=== PATIENT | male | born 1960 | race Caucasian/White ===

== ENCOUNTER 2023-09-29 18:57 | Outpatient (CLI) | payer OTHER, SELFPAY ==
--- NOTE | ~2023-09-29 | CT_ITS ---
EXAMINATION: CTA chest PE abdomen pel DATE: 09/29/2023 19:20 INDICATION: CP,+DDIMER,ELEVATED LFTs,UPPER ABD PAIN TECHNIQUE: Computed tomography angiography (CTA) of the chest was performed with 100 mL Omnipaque-350 intravenous contrast timed to evaluate the pulmonary arteries, followed by portal venous phase imagi ng of the abdomen and pelvis. Coronal maximum intensity projection 3D-reconstructions were created by the technologist. The dose-length product (DLP) was 508.43 mGy-cm. Automated exposure control and it erative reconstruction technique were employed. COMPARISON: None. FINDINGS: CHEST: Lung parenchyma and airways: Azygos lobe. Right upper lung scarring. Scattered air cysts. Airways chris ar to the level of the trachea. Pleura: Unremarkable. Thoracic inlet, axillae and chest wall: No thyroid or soft tissue mass. Tracheostomy tube, in good po sition. Numerous collateral vessels in the right lower neck and anterior right chest. Likely occlusio n of the right subclavian vein. 3.0 thin-walled fluid density cystic structure in the left lower neck with mild peripheral enhancement. Thoracic aorta: No significant dilation. No dissection. Mild arch calcification. Mediastinum: Normal. Heart and pericardium: Normal. Coronary artery calcifications: . Thoracic bones: No acute osseous finding. Pulmonary arteries: Study quality: . No pulmonary emboli detected. ABDOMEN/PELVIS: Liver: Diffuse fatty infiltration. Biliary/Gallbladder: Gallbladder is normal. No bile duct dilation. Pancreas: No mass or duct dilation. Spleen: Normal. Adrenals:No mass. Kidneys: No suspicious mass or obstructing stone. Mild bilateral pelviectasis and ureterectasis. GI tract: No small or large bowel dilation. The appendix is not confidently visualized. Diverticulosi s without diverticulitis. Uncomplicated transverse colon anastomoses. Likely status post partial left colectomy. Mesentery/Peritoneum: No ascites, mass, or free air. Retroperitoneum: No mass. Atherosclerotic abdominal aortic and/or arterial calcifications. Pelvis: Distended urinary bladder. Mild prostatomegaly.. Soft Tissues: Soft tissues and body wall unremarkable. Abdominopelvic bones: No acute osseous finding. IMPRESSION: Tracheostomy tube in good position. The airway superior to the tracheostomy is occluded. 3 cm cystic right left lower neck lesion, may represent a chronic seroma, benign cyst, or necrotic ma ss or node. 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 Hepatic steatosis. Distended urinary bladder with mild bilateral renal pelviectasis and ureterectasis, correlate for fin dings of urinary retention and with urinalysis. Otherwise, no acute process detected in the abdomen or pelvis. Reviewed, dictated and finalized at location K. IMPRESSION: Tracheostomy tube in good position. The airway superior to the tracheostomy is occluded. 3 cm cystic right left lower neck lesion, may represent a chronic seroma, benig n cyst, or necrotic mass or node. 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 Hepatic steatosis. Distended urinary bladder with mild bilateral renal pelviectasis and ureterecta sis, correlate for findings of urinary retention and with urinalysis. Otherwise, no acute process detected in the abdomen or pelvis.
== END 2023-09-29 18:58 | disposition home or self-care (01) ==
PROVIDERS: PCP Family Medicine
DX: R79.1 Abnormal coagulation profile (principal); R10.10 Upper abdominal pain, unspecified; R79.89 Other specified abnormal findings of blood chemistry; Z93.0 Tracheostomy status; I82.B11 Acute embolism and thrombosis of right subclavian vein
CPT/HCPCS: 71275; 74177; Q9967

== ENCOUNTER 2024-06-18 10:49 | Emergency (ER) | payer OTHER, SELFPAY ==
[2024-06-18] VITALS (7 sets, daily range): BP systolic 133–137; BP diastolic 89–95; PULSE 78–89; RESP 13–20; TEMP 36.4; O2SAT 96–100
--- NOTE | ~2024-06-18 | CT_ITS ---
EXAMINATION: CTA chest PE protocol DATE: 06/18/2024 14:33 INDICATION: Hemoptysis. TECHNIQUE: Computed tomography angiography (CTA) of the chest was performed with 100 mL Omnipaque-350 intravenous contrast timed to evaluate the pulmonary arteries. Coronal maximum intensity projection 3D-reconstructions were created by the technologist. Automated exposure control and iterative reconst ruction technique were employed. The dose-length product was 257.50 mGy-cm. COMPARISON: Chest CT 09/29/2023 FINDINGS: There is mild emphysema. There are changes of wedge resection in right upper lobe. There is mild atelectasis bilaterally. No pleural effusion. There is a tracheostomy in expected position. The re is a 2.6 x 1.8 cm cystic mass in left supraclavicular region. The heart size is normal. No pericar dial effusion. There is no pulmonary embolus. There is severe cervical spondylosis and mild thoracic spondylosis. IMPRESSION: 1. No pulmonary embolus. 2. Mild emphysema. 3. 2.6 x 1.8 cm cystic mass in left supraclavicular region that previously measured 2.8 x 2.2 cm. The differential diagnosis includes seroma and dina metastatic disease. Reviewed, dictated and finalized at location A. NURSE IMPRESSION: 1. No pulmonary embolus. 2. Mild emphysema. 3. 2.6 x 1.8 cm cystic mass in left supraclavicular region that previously karen ured 2.8 x 2.2 cm. The differential diagnosis includes seroma and dina metasta tic disease.
--- OUTSIDE RECORDS SUMMARY | 2024-06-18 10:52 | XMS_ITS | Encounter Summary ---
Author Organization [facility] Address [address] [place] [address] Phone Care Team Providers Care Interior Design Program Chair Name Role Phone Unknown, Notinfile Primary Care Provider Unavail able Lauren Roberson MD Unavailable [phone] Catalino Rebolledo MD Unavailable [phone] Hipolito Valverde MD Unavailable [phone] Jose Huerta DO Primary Care Provider [phone] Juvenal Lin MD PhD Unavailable [phone] No, Physician Primary Care Provider [phone] Encounter Details Date Type Department Care Team (Late st Contact Info) Description 07/27/[address] [facility] [address] 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 No / Unsure 07/27/2019 10:50 AM CDT documented as of this encounter Progress Notes * Sammie Javier LCSW - 07/27/2019 11:59 PM CDT Social Work Note: Social Work attempted to meet with patient at time of his appointment, but he had already left. Attempted to f/u in treatment, but he had not arrived. Provided patient's RN with the telephone # to call for his ride when treatment is completed. However, later in the day, received a call from RN thatpatient's treatment would be finished at 7 or 8 PM and would need cab transportation home. Cab arranged for patient via [employer] [facility] [employer] and placed on-hold. Updated treatment room RN. When treatmentis completed, please call [phone] and request cab for this patient which is on-hold under his name. documented in this encounter Plan of Treatment Not on file documented as of this encounter Visit Diagnoses Not on filedocumented in this encounter Care Teams Interior Design Program Chair Relationship Specialty Start Date End Date Unknown, Notinfile PCP - General 06/06/19 09/25/19 Jose Huerta DO [address] [place] [address] PCP - General 09/26/19 06/18/20 No, Physician PCP - General 06/19/20 Lauren Roberson MD Radiation Oncologist Radiation Oncology 07/14/19 Catalino Rebolledo MD [address] [place] [address] Medical Oncologist/Librarian Head Medical Oncology 08/01/19 Hipolito Valverde MD [address] [place] [address] Surgeon Otolaryngology 08/01/19 Juvenal Lin MD PhD [address] [place] [address] Consulting Physician Radiation Oncology 06/07/20 documented as of this encounter
--- OUTSIDE RECORDS SUMMARY | 2024-06-18 10:52 | XMS_ITS | Data Portability ---
Author Organization [facility] [place], Main Office Address [address] [place] [address] Assessment No assessment recorded. Plan of Treatment Reminders Order Date Submit Date Provider Last Modified By Organization Details Last Modified Time Details Appointments Any 15 2024 01:00P M Lynette Fitzgerald APRN Not available Not available Not available Lab CBC w/ auto diff 2023 [facility] (Lab), [address] [place], [address], 11/17/2023 08:16:54 lipid panel, serum 2023 024 [facility] (Lab), [address] [place], [address], 11/10/2023 23:15:58 vitamin D, 25-hydrox y, total, serum 2023 [facility] (Lab), [address] [place], [address], 11/17/2023 08:16:54 magnesium , serum or plasma 2023 024 [facility] (Lab), [address] [place], [address], 11/17/2023 08:16:54 hepatitis C virus Ab, serum 2023 024 [facility] (Lab), [address] [place], [address], 11/17/2023 08:16:55 glycohemo globin, total, blood 2023 024 [facility] (Lab), [address] [place], [address], 11/17/2023 08:16:55 vitamin B12, serum 2023 024 [facility] (Lab), [address] [place], [address], 11/10/2023 23:15:58 TSH, serum or plasma 2023 024 [facility] (Lab), [address] [place], [address], 11/11/2023 08:14:58 T4, free, serum 2023 024 [facility] (Lab), [address] [place], [address], 11/17/2023 08:16:54 CMP, serum or plasma 2023 024 [facility] (Lab), [address] [place], [address], 11/10/2023 23:15:58 Referral cardiolog ist referral - Recurrent chest pain. Trach patient. History of vocal cord and colon cancer 2023 024 [facility] Roly White MD, [address] [facility], [facility] [address], [place], [address], 01/06/2024 16:33:17 Procedures None recorded. Surgeries None recorded. Imaging None recorded. Medication Orders levothyro xine 100 mcg tablet 2024 025 [facility][id number], [address], [place], [id number], 05/10/2024 14:54:34 gabapenti n 800 mg tablet 2024 025 [facility] #[id number], [address], [place], [id number], 05/10/2024 14:54:37 gabapenti n 800 mg tablet 2023 024 [facility] #[id number], [address], [place], [id number], 11/10/2023 14:49:07 Patient TargetsNo targets recorded. Patient Instructions Encounter Date Encounter Id Patient Instructions Last Modified By Organization Details Last Modified Time 11/10/2023 [id number] Follow up in 6 months Gabapentin sent to pharmacy Obtain labs Referral to Dr. 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 Trach patient. History of vocal cord and colon cancer Referring Physician: Lynette Fitzgerald, Internal Medicine, Encounter Date: 11/10/2023 Results Created Date Observation Date Name Description Value Unit Range Abnormal Flag Note LastModifiedBy Organization Detail LastModifiedTime 01/15/20 24 01/13/2024 imagi ng/di agnos tic resul t No observ ation record ed. [facility] [address], [place], [address], 01/15/2024 13:41:13 04/01/20 24 04/01/2024 imagi ng/di agnos tic resul t No observ ation record ed. [facility] [address], [place], [address], 04/01/2024 16:30:16 04/11/20 24 04/07/2024 imagi ng/di agnos tic resul t No observ ation record ed. [facility] [address], [place], [address], 04/11/2024 13:25:30 04/11/20 24 04/07/2024 US, doppl er, evita roa No observ ation record ed. [email or web address] [facility] [address], [place], [address], 05/01/2024 18:36:39 Result Notes None recorded. Problems Name Problem SNOMED Code Status Onset Date Resolution Date Notes Provider Name and Address Organization Details Recorded Time Hypothyroi dism 30687178 Active 2023 Lynette Fitzgerald APRN [address], [place], [address], [employer] 4 14:26:23 Neuropathy 405757373 Active 2023 left lower extremity Lynette Fitzgerald APRN [address], [place], [address], [employer] 4 14:30:23 Carcinoma of colon 905504529 Active 2023 Lynette Fitzgerald APRN [address], [place], [address], [employer] 4 14:33:57 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 Lynette Fitzgerald APRN [address], [place], [address], [employer] 4 14:34:16 Essential hypertensi on 82911623 Active 2023 Lynette Fitzgerald APRN [address], [place], [address], [employer] 4 16:46:12 Chest wall pain 619291359 Active 2023 Lynette Fitzgerald APRN [address], [place], [address], [employer] 4 14:42:52 Homeless 82583976 Active 2023 Lynette Fitzgerald APRN [address], [place], [address], [employer] 4 16:46:17 Acute exacerbati on of chronic obstructiv e pulmonary disease 921860408 Active Lynette MenezesMEETA bo [address], [place], [address], [employer] 4 16:40:49 Cough 48495646 Active Lynette Fitzgerald APRN [address], [place], [address], [employer] 4 16:40:49 Chronic obstructiv e pulmonary disease 28964897 Active 2023 Lynette Fitzgerald APRN [address], [place], [address], [employer] 4 16:45:55 Hyponatrem ia 39318969 Active 2023 Lynette Fitzgerald APRN [address], [place], [address], [employer] 4 16:46:03 Abdominal colic 2410192 Active Lynette Fitzgerald APRN [address], [place], [address], [employer] 4 10:03:38 Permanent tracheosto my Active 2024 Trach tube is through [employer] and is a [employer] Lynette MEETA Fitzgerald [address], [place], [address], [employer] 5 10:42:28 Notes:Trachostomy since 2019 Some problems listed in Documents: #[id number], #[id number] could not be added to this patient's chart. Please review these documents and add these problems to the patient's chart manually as needed. Problem Notes None recorded. Procedures Surgical History Date Name Laterality Status Provider Name and Address Organization Details Recorded Time excision of colon completed CHRISTOPHER Umaña [facility] [employer] [facility] 11/10/2023 14:10:26 permanent tracheostomy completed Luz Linares CHRISTOPHER [facility] [employer] [facility] 11/10/2023 14:21:03 lobectomy of the lung and excisional biopsies completed Luz Linares CHRISTOPHER [facility] [employer] [facility] 11/10/2023 14:14:28 Imaging Results Imaging Date Name Status LastModified by [facility] Details LastModified Time 01/13/2024 imaging/diag nostic result active [facility] [address] [facility] [address], [place], [address], 01/15/2024 13:41:13 04/01/2024 imaging/diag nostic result active [facility] [address], [place], [address], 04/01/2024 16:30:16 04/07/2024 imaging/diag nostic result active [facility] [address], [place], [address], 04/11/2024 13:25:30 04/07/2024 US, doppler, venous completed [email or web address] [facility] [address], [place], [address], 05/01/2024 18:36:39 Procedure Notes None recorded. Medical Equipment None Reported. Allergies Allergen ID Allergen Name Allergen Category Reaction Reaction Severity Criticality Documentation Date Start Date Code Code System Note Provider Name and Address Organization Details Recorded Time 18787 No known allergy (situatio n) Not available Not available Not available Not available 11/20/2023 64326 6003 SNOMED Lynette Fitzgerald, MEETA [address] [facility], [address], [place], [address] , [facility] [employer] [facility] 16:40:31 No known drug allergies Medications Name Sig Start Date Stop Date Status Note LastModified by Organization Details LastModified Time gabapentin 600 mg tablet TAKE 1 TABLET BY MOUTH THREE TIMES DAILY 11/10 completed Not Available Not Available Not Available ipratropium 0.5 mg-albutero l 3 mg (2.5 mg base)/3 mL nebulizatio n soln 3 mL by inhalatio n route. 11/18 completed Not Available Not Available Not Available trazodone 50 mg tablet 11/09 completed Not Available Not Available Not Available azithromyci n 250 mg tablet TAKE 2 TABLETS BY MOUTH ON DAY 1, AND THEN TAKE 1 TABLET BY MOUTH ONCE A DAY ON DAY 2 THROUGH DAY 5 11/09 completed Not Available Not Available Not Available Isovue-370 76 % intravenous solution 100 mL by intraven. route. 01/06 completed Not Available Not Available Not Available lactated Ringers intravenous solution 1000 mL by intraven. route. 01/06 completed Not Available Not Available Not Available hydroxyzine pamoate 50 mg capsule 11/09 completed Not Available Not Available Not Available amlodipine 5 mg tablet 11/09 completed Not Available Not Available Not Available omeprazole 40 mg capsule,del ayed release TAKE 1 CAPSULE BY MOUTH ONCE DAILY 11/09 completed Not Available Not Available Not Available aspirin 81 mg tablet,shahana yed release Take 1 tablet every day by oral route. active Not Available Not Available No t Available levothyroxi ne 100 mcg tablet Take 1 tablet every day by oral route as directed, for thyroid. 2024 active Not Available Not Available Not Avai lable Nitrostat 0.4 mg sublingual tablet 0.4 mg by sublingua l route. 11/18 completed Not Available Not Available Not Available gabapentin 800 mg tablet Take 1 tablet 3 times a day by oral route as directed, for nerve pain in leg. active Not Available Not Available No t Available lidocaine 5 % topical patch 11/09 completed Not Available Not Available Not Available Bentyl 10 mg/mL intramuscul ar solution 20 mg by intramusc . route. 01/06 completed Not Available Not Available Not Available budesonide 0.5 mg/2 mL suspension for nebulizatio n 0.5 mg by inhalatio n route. 11/18 completed Not Available Not Available Not Available aspirin 81 mg chewable tablet 81 mg by oral route. 11/18 completed Not Available Not Available Not Available sodium chloride 0.9 % intravenous solution 50 mL by intraven. route. 01/06 completed Not Available Not Available Not Available naproxen 500 mg tablet TAKE 1 TABLET BY MOUTH TWICE DAILY FOR 10 DAYS 11/09 completed Not Available Not Available Not Available ondansetron HCl (PF) 4 mg/2 mL injection solution 4 mg by injection route. 01/06 completed Not Available Not Available Not Available hydrochloro thiazide 12.5 mg tablet 11/09 completed Not Available Not Available Not Available Solu-Medrol (PF) 125 mg/2 mL solution for injection 125 mg by injection route. 11/19 completed Not Available Not Available Not Available Eliquis 2.5 mg tablet TAKE 1 TABLET BY MOUTH TWICE DAILY active Not Available Not Available No t Available Vitals Date Recorded Body weight Body mass index (BMI) Body height Body temperature Heart rate Systolic blood pressure Diastolic blood pressure Provider Name and Address Organization Details Last Updated DateTime 4 56308.5 9 g 24 kg/m2 172.72 cm 97.5 [degF] 78 /min 142 mm[Hg] 82 mm[Hg] CHRISTOPHER Fowler [facility] [place] 4 14:17:32 Date Recorded Body height Body mass index (BMI) Body weight Body temperature Heart rate Oxygen saturation Oxygen saturation in Arterial blood by Pulse oximetry Pain severity - 0-10 verbal numeric rating [Score] - Reported Systolic blood pressure Diastolic blood pressure Provider Name and Address Organization Details Last Updated DateTime 5 172.72 cm 25.8 kg/m2 05106.7 g 97.5 [degF] 85 /min 98 % 98 % 9 130 mm[Hg] 68 mm[Hg] Zhane Hood MA [facility] [place] 5 14:34:45 Social History Question Answer Notes LastModified by Organizat ion Details LastModified Time Tobacco Smoking Status Former Smoker quit 2019 CHRISTOPHER Fowler [facility] [place] 11/10/2023 14:12:31 What Is Your Level Of Alcohol Consumption? None Information not available 11/10/2023 What Is Your Level Of Caffeine Consumption? None Information not available 11/10/2023 Are You Currently Employed? No Information not available 11/10/2023 When Did You Quit Smoking? 1-5yearssin pato corea Information not available 11/10/2023 What Was The Date Of Your Most Recent Tobacco Screening? 11/10/2023 Information not available 11/10/2023 Do You Use Any Illicit Or Recreational Drugs? No Information not available 11/10/2023 Do You Or Have You Ever Used Any Other Forms Of Tobacco Or Nicotine? No Information not available 11/10/2023 Sex: Unknown Functional Status None recorded. Mental Status None recorded. Family History Relationship Description Onset Age of this Age Resolved Age Notes LastModified by Organization Details LastModified Time Unspecified Relation Family history of Myocardial infarction Not available 11/09 14:09:29 Unspecified Relation Family history of malignant neoplasm Not available 2023 14:09:38 Medical History Condition Response CANCER: SPECIFY Y OTHER # 1 Y COPD N HYPOTHYROIDISM Y Immunizations Vaccine Type Date Status Note Provider Nam e and Address Organization Details Recorded Time Influenza, recombinant, quadrivalent, PF 01/21/2023 completed Lynette Fitzgerald APRN [address], [place], [address], [employer] 11/10/2023 14:32:26 Influenza, recombinant, quadrivalent, PF 02/27/2021 completed Lynette Fitzgerald APRN [address], [place], [address], [employer] 11/10/2023 14:32:26 COVID-19, mRNA, LNP-S, PF, 100 mcg/0.5mL dose or 50 mcg/0.25mL dose 09/19/2020 completed Lynette Fitzgerald APRN [address], [place], [address], [employer] 11/10/2023 14:32:26 COVID-19, mRNA, LNP-S, PF, 100 mcg/0.5mL dose or 50 mcg/0.25mL dose 10/17/2020 completed Lynette Fitzgerald APRN [address], [place], [address], [employer] [facility] [employer] [facility] 11/10/2023 14:32:26 influenza, unspecified formulation 02/28/2020 completed Lynette Fitzgerald APRN [address], [place], [address], [employer] [facility] [employer] [facility] 11/10/2023 14:32:26 influenza, unspecified formulation 03/27/2019 completed Lynette Fitzgerald APRN [address], [place], [address], [employer] [facility] [employer] [facility] 11/10/2023 14:32:26 Influenza, split virus, quadrivalent, PF 03/18/2019 jdue Fitzgerald APRN [address], [place], [address], [employer] [facility] [employer] [facility] 11/10/2023 14:32:26 COVID-19, mRNA, LNP-S, PF, 50 mcg/0.5 mL 02/23/2024 jude Fitzgerald APRN [address], [place], [address], [employer] [facility] [employer] [facility] 05/10/2024 14:50:35 Influenza, split virus, trivalent, PF 02/23/2024 jude Fitzgeradl APRN [address], [place], [address], [employer] [facility] [employer] [facility] 05/10/2024 14:50:35 Past Encounters Encounter ID Performer Location Encounter Start Date Encounter Closed Date Diagnosis/Indication Diagnosis SNOMED-CT Code Diagnosis ICD10 Code Diagnosis Note [id number] MEETA [facility] [address] [place] [address] 11/10/2023 13:54:30 11/10/2023 14:52:16 Hypothyroidism 45751457 E03.9 Essential hypertension 04702075 I10 Chest wall pain 69034140 6 R07.89 Neuropathy 265623550 G62 .9 [id number] Lynette Fitzgerald APRN [facility] [address] [facility] [place] [address] 05/10/2024 13:54:43 05/10/2024 15:07:30 Adult health examination 095314250 Z00.00 Neuropathy 501516009 G62 .9 Hypothyroidism 34979316 E03.9 Health Concerns Section Related Observation LastModified by Organization Detai ls LastModified Time None Recorded Concern Status LastModified by Organization Details LastModified Time None Recorded Advance Directives Directive None Recorded Payers Encounter Date Sequence Insurance Name Policy Number Policy Jarrell Covered Member ID Jarrell Member ID Guarantor Name 11/10/2023 1 [facility] ON OR AFTER 10/25/20 (MEDICAID REPLACEMENT - HMO) Garth Raymundo [id number] Garth Raymundo 05/10/2024 1 [facility] ON OR AFTER 10/25/20 (MEDICAID REPLACEMENT - HMO) Garth Raymundo [id number] Garth Raymundo Notes Date Note Type Note Provider Name and Address Organization Details Recorded Time 11/10/2023 text/html Garth presents today to establish care as a new patient. 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 He now has a trach and voice amplifier. Alert and oriented. He appears frustrated with his trach at times and his inability to speak without the vocal amplifier. Lynette Fitzgerald APRN [address] [facility], [place], [address], [facility] 11/10/2023 14:50:17 05/10/2024 text/html Garth presents today for his 6 month follow up. He states that his left leg has been hurting because he is homeless and sleeps in a tent with 2 sleeping bags. He states he has some blockage in his heart, but sees cardiology. He has an appointment tomorrow for follow up. 11/10/2023rosy presents today to establish care as a new patient. 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 He now has a trach and voice amplifier. Alert and oriented. He appears frustrated with his trach at times and his inability to speak without the vocal amplifier. Lynette Fitzgerald, EMPLOYMENT LAW SPECIALIST [address] [facility], [facility] [address], [place], [address], [employer] [facility] [employer] [facility] 05/10/2024 15:03:22
--- OUTSIDE RECORDS SUMMARY | 2024-06-18 10:52 | XMS_ITS | Clinical Summary ---
Author Organization [facility] Address [address] [place] [address] Care Team Providers Care Life Care Planner Name Role Phone Lauren Roberson MD Unavailable [phone] Catalino Rebolledo MD Unavailable [phone] Hipolito Valverde MD Unavailable [phone] Juvenal Lin MD PhD Unavailable [phone] No, Physician Primary Care Provider Allergies No known active allergies Medications levothyroxine (SYNTHROID) 50 mcg tablet Take 1 tablet (50 mcg total) by mouth magazine feeder before breakfast 30 tablet 3 0 Active Additional Information Patient not taking.Informant: Self, Reported on 02/28/2020 acetaminophen 500 mg capsuleIndicati ons:Pain Take 2 capsules (1,000 mg total) by mouth every 6 (six) hours as needed for pain May obtain over the counter and use as directed. 0 Active lidocaine (LIDODERM) 5 % Place 2 patches on the skin daily as needed for pain Remove & discard patch within 12 hours or as directed by MD. May obtain over the counter and use as directed. Please Do Not apply directly on incision lines. 0 Active Additional Information Patient not taking.Reported on 06/19/2020 polyethylene glycol (MIRALAX) 17 gram packetIndicatio ns:constipation Take 1 packet (17 g total) by mouth daily as needed for constipation May obtain over the counter and use as directed. 0 Active Additional Information Patient not taking.Reported on 06/19/2020 gabapentin (NEURONTIN) 300 mg capsuleIndicati ons:Nerve pain Take 1 capsule (300 mg total) by mouth nightly 30 capsule 0 Active baclofen (LIORESAL) 10 mg tabletIndicatio ns:Muscle spasm Take 1 tablet (10 mg total) by mouth nightly as needed for muscle spasms 30 tablet 0 Active Active Problems Patient Care Coordination No te Formatting of this note migh t be different from the original. Referring: Dr. Catalino Rebolledo This is a 59 year old male presenting to us with a pulmonary nodule. He has a medical history significant for COPD and hypothyroidism. He is a former smoker. 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 He underwent a total laryngectomy, bilateral selective neck dissection and total thyroidectomy on 06/13/2019. He then went onto to receive adjuvant radiation therapy 6600 cGy in fractions of 200 cGy x 33 fractions. He has been under surveillance and recently underwent a PET scan on 01/17/2020 that showed interval post-surgical changes of total laryngectomy, thyroidectomy, and bilateral radical neck dissection. Mild diffuse low level FDG uptake most likely represents posttreatment and inflammatory change, without focal FDG uptake to suggest residual/recurrent disease. Persistent indeterminate spiculated right upper lobe pulmonary nodule, slightly increased in size but stable in FDG avidity given differences in technique. Focus of FDG uptake within the right parietal lobe, indeterminate but may represent a metastatic focus. He underwent a brain MRI on 01/23/2020 that showed no evidence of intracranial metastatic disease. No definite MRI correlate for focal right parietal uptake seen on recent PET/CT. He is here for further surgical evaluation and discussion. Review of systems: All systems were reviewed and are negative. Problem Noted Date Diagnosed Date Lung nodule 02/16/2020 Overview (02/16/2020): Added automatically from request for surgery [id number] Lymphedema of the head and neck 01/23/2020 History of radiation to head and neck region Pain of left lower extremity 12/12/2019 Decreased range of motion of neck 10/10/2019 Pulmonary nodule, left 09/26/2019 Larynx cancer (CMS/[facility]) 06/28/2019 Cancer Staging:Pathologic stage from 06/13/2019:Stage SANCHEZ(pT4a, pN0, cM0) - Signed by Lauren Roberson MD on 07/14/2019 Overview (06/28/2019): DIAGNOSIS: Laryngeal cancer PROCEDURE PERFORMED: ([facility] 06/13/2019) Left anterolateral thigh myocutaneous free flap reconstruction POSTOPERATIVE DIAGNOSIS T4 N0 laryngeal cancer. PROCEDURE PERFORMED ([facility] 06/13/2019) 1. Total laryngectomy, total thyroidectomy. 2. Bilateral neck dissection level 2b, 3,4, 6, and 7. 3. Bilateral sternocleidomastoid local muscleflaps. Inferiorly-based Severe malnutrition (CMS/HCC) 06/07/2019 Vocal cords swelling 06/06/2019 Overview (06/06/2019): Added automatically from request for surgery [id number] Resolved Problems Problem Noted Date Diagnosed Date Resolved Date Laryngeal mass 06/06/2019 10/10/2019 Overview (06/07/2019): Added automatically from request for surgery [id number] Immunizations Immunization Administration Dates Next Due Influenza, Quadrivalent, Spl it, Preservative Free, Intramuscular 03/18/2019 Influenza, Unspecified 02/28/2020,03/27/2019 Surgical History Surgery Date Site/Laterality Comments KNEE SURGERY ?? - this was previously charted - patient states he has never had knee surgery. - MEAGAN, RN TOTAL LARYNGECTOMY 06/13/2019 TOTAL THYROIDECTOMY 06/13/2019 CENTRAL LINE PLACEMENT > 5 YEARS 07/26/2019 N/A Medical History Medical History Date Comments COPD (chronic obstructive pulmonary disease) (HC C) Smoker Cancer (CMS/HCC) (HCC) larynx Hypothyroidism Family History Medical History Relation Name Comments Heart attack Father Relation Name Status Comments Father Social History Tobacco Use Types Packs/Day Years Used Date Smoking Tobacco: Former Cigarettes 1 - 2019 Smokeless Tobacco: Never Comments:Quit smoking 5 dave hs ago Alcohol Use Standard Drinks/Week Comments Not Currently 14 (1 standard drink = 0.6 oz pure alcohol) quit in 2019 when diagnosed with laryngeal cancer Sex and Gender Information Value Date Recorded Sex Assigned at Not on file Legal Sex Male 5:45 AM CHIEF STATION ENGINEER Gender Identity Not on file Sexual Orientation Not on file Obstetrics History Last Filed Vital Signs Vital Sign Reading Time Taken Comments Blood Pressure 126/90 06/19/2020 12:52 PM CHIEF STATION ENGINEER Pulse 80 06/19/2020 12:52 PM CHIEF STATION ENGINEER Temperature 36.3 C (97.3 F) 06/19/2020 12:52 PM CHIEF STATION ENGINEER Respiratory Rate 22 06/19/2020 12:52 PM CHIEF STATION ENGINEER Oxygen Saturation 99% 06/19/2020 12:52 PM CHIEF STATION ENGINEER Inhaled Oxygen Concentration - - Weight 76.8 kg (169 lb 6.4 oz) 06/19/2020 12:52 PM CHIEF STATION ENGINEER Height 180 cm (5' 10.87 ) 03/02/2020 12:34 PM CS T Body Mass Index 23.72 03/02/2020 12:34 PM CHIEF STATION ENGINEER Plan of Treatment Health Maintenance Due Date Last Done Comments Colon Cancer Screening-Colonoscopy 1962 Depression Screening 1962 Hepatitis C Screening 1962 Prostate Cancer Screening-PSA 1962 DTaP/Tdap/Td Vaccine (1 - Tdap) 1973 Hepatitis B Screening 1980 Regular Well Visit/Exam 18-64 1980 Pneumococcal vaccine <65 (1 of 2 - PCV) 1981 Zoster Vaccine (1 of 2) 2012 Covid-19 Vaccine (3 - 2023-2 5 season) 2023 10/17/2020, 09/19/2020 Influenza Vaccine (#1) 2023 3, 02/27/2021, 02/28/2020, Additional history exists Medical Devices Implanted Type Area Welding Machine Operator/Tender Device Identifier Shelf Expiration Date Model / Serial / Lot [id number] Allian [id number] Yellow Medicine Microvascular Anastomoses 4mm Screwdown Operator Anastomosis Sterile - [id number] Implanted:Qty: 1 on 06/13/2019 by Reji Alas MD at [facility] Other - see comments Neck [employer] Allian 03/21/2024 [id number] / / Description:Screwdown Operator [employer] [id number] Probe Doppler 17.4cm Standard Cuff Implantable 20mhz Latex Free Sterile Microvascular Anastomoses Narciso - [id number] Implanted:Qty: 1 on 06/13/2019 by Reji Alas MD at [facility] Neck [employer] [id number] 04/26/2022 [id number] / / [id number] Insurance [facility] Advance Directives For more information, please contact: [phone] * Full Code (Latest Code Status on File) Date Activated Date Inactivated Comments 03/02/2020 6:40 PM 03/05/2020 4:51 PM * Full Code Date Activated Date Inactivated Comments 07/26/2019 8:49 AM 07/26/2019 2:38 PM * Full Code Date Activated Date Inactivated Comments 06/06/2019 11:31 AM 06/23/2019 8:04 PM Care Teams Life Care Planner Relationship Specialty Start Date End Date No, Physician PCP - General 06/19/20 Lauren Roberson MD Radiation Oncologist Radiation Oncology 07/14/19 Catalino Rebolledo MD [address] [facility] [address] [place] [address] Medical Oncologist/Drafter Electromechanical Medical Oncology 08/01/19 Hipolito Valverde MD [address] [place] [address] Surgeon Otolaryngology 08/01/19 Juvenal Lin MD PhD [address] [place] [address] Consulting Physician Radiation Oncology 06/07/20
--- OUTSIDE RECORDS SUMMARY | 2024-06-18 10:52 | XMS_ITS | Referral Summary ---
Author Organization [facility] Address [address] [place] [address] Care Team Providers Care Field Gauger Name Role Phone Lauren Roberson MD Unavailable [phone] Catalino Rebolledo MD Unavailable [phone] Hipolito Valverde MD Unavailable [phone] Juvenal Lin MD PhD Unavailable [phone] No, Physician Primary Care Provider [phone] Allergies No known active allergies Medications levothyroxine (SYNTHROID) 50 mcg tablet Take 1 tablet (50 mcg total) by mouth food service order clerk before breakfast 30 tablet 3 0 Active [...] (02/16/2020): Added automatically from request for surgery [id number] Lymphedema of the head and neck 01/23/2020 History of radiation to head and neck region Pain of left lower extremity 12/12/2019 Decreased range of motion of neck 10/10/2019 Pulmonary nodule, left 09/26/2019 Larynx cancer (CMS/[facility]) 06/28/2019 Cancer Staging:Pathologic stage from 06/13/2019:Stage [...] (06/06/2019): Added automatically from request for surgery [id number] Resolved Problems Problem Noted Date Diagnosed Date Resolved Date Laryngeal mass 06/06/2019 10/10/2019 Overview (06/07/2019): Added automatically from request for surgery [id number] Immunizations Immunization Administration Dates Next Due Influenza, Quadrivalent, Spl it, Preservative Free, Intramuscular 03/18/2019 Influenza, Unspecified 02/28/2020,03/27/2019 Social History Tobacco Use Types Packs/Day Years Used Date Smoking Tobacco: Former Cigarettes 2019 Smokeless Tobacco: Never Comments:Quit smoking 5 dave hs ago Alcohol Use Standard Drinks/Week Comments Not Currently 14 (1 standard drink = 0.6 oz pure alcohol) quit in 2019 when diagnosed with laryngeal cancer Sex and Gender Information Value Date Recorded Sex Assigned at Not on file Legal Sex Male 5:45 AM PROGRAM SUPPORT SPECIALIST Gender Identity Not on file Sexual Orientation Not on file Last Filed Vital Signs Vital Sign Reading Time Taken Comments Blood Pressure 126/90 06/19/2020 12:52 PM PROGRAM SUPPORT SPECIALIST Pulse 80 06/19/2020 12:52 PM PROGRAM SUPPORT SPECIALIST Temperature 36.3 C (97.3 F) 06/19/2020 12:52 PM PROGRAM SUPPORT SPECIALIST Respiratory Rate 22 06/19/2020 12:52 PM PROGRAM SUPPORT SPECIALIST Oxygen Saturation 99% 06/19/2020 12:52 PM PROGRAM SUPPORT SPECIALIST Inhaled Oxygen Concentration - - Weight 76.8 kg (169 lb 6.4 oz) 06/19/2020 12:52 PM PROGRAM SUPPORT SPECIALIST Height 180 cm (5' 10.87 ) 03/02/2020 12:34 PM CS T Body Mass Index 23.72 03/02/2020 12:34 PM PROGRAM SUPPORT SPECIALIST Plan of Treatment Not on file Medical Devices Implanted Type Area Clerical Warehouseman Device Identifier Shelf Expiration Date Model / Serial / Lot [employer] Allian [id number] [place] Microvascular Anastomoses 4mm Diabetes Education Coordinator Anastomosis Sterile - [id number] Implanted:Qty: 1 on 06/13/2019 by Reji Alas MD at [facility] Other - see comments Neck [employer] Allian 03/21/2024 [id number] / / Description:Diabetes Education Coordinator [employer] [id number] Probe Doppler 17.4cm Standard Cuff Implantable 20mhz Latex Free Sterile Microvascular Anastomoses Narciso - [id number] Implanted:Qty: 1 on 06/13/2019 by Reji Alas MD at [facility] Neck [employer] [id number] 04/26/2022 [id number] / / [id number] Insurance [facility] Advance Directives For more information, please contact: [phone] * Full Code (Latest Code Status on File) Date Activated Date Inactivated Comments 03/02/2020 6:40 PM 03/05/2020 4:51 PM * Full Code Date Activated Date Inactivated Comments 07/26/2019 8:49 AM 07/26/2019 2:38 PM * Full Code Date Activated Date Inactivated Comments 06/06/2019 11:31 AM 06/23/2019 8:04 PM Care Teams Field Gauger Relationship Specialty Start Date End Date No, Physician PCP - General 06/19/20 Lauren Roberson MD Radiation Oncologist Radiation Oncology 07/14/19 Catalino Rebolledo MD [address] [facility] [address] [place] [address] Medical Oncologist/Plaster Whittler Medical Oncology 08/01/19 Hipolito Valverde MD [address] [place] [address] Surgeon Otolaryngology 08/01/19 Juvenal Lin MD PhD [address] [place] [address] Consulting Physician Radiation Oncology 06/07/20
--- OUTSIDE RECORDS SUMMARY | 2024-06-18 10:52 | XMS_ITS | Encounter Summary ---
Author Organization [facility] Address [address] [place] [address] Phone Care Team Providers Care Student Services Counselor Name Role Phone Unknown, Notinfile Primary Care Provider Unavail able Lauren Roberson MD Unavailable [phone] Catalino Rebolledo MD Unavailable [phone] Hipolito Valverde MD Unavailable Jose Huerta DO Primary Care Provider [phone] Juvenal Lin MD PhD Unavailable [phone] No, Physician Primary Care Provider [phone] Encounter Details Date Type Department Care Team (Late st Contact Info) Description 07/07/2019 Social Work [facility] Oncology [address] [facility] [address] [place] [address] [place] [address] Sammie Javier LCSW Social History Tobacco Use Types Packs/Day Years Used Date Smoking Tobacco: Former Cigarettes Smokeless Tobacco: Never Sex and Gender Information Value Date Recorded Sex Assigned at Not on file Legal Sex Male 5:45 AM EGG GATHERER Gender Identity Not on file Sexual Orientation Not on file COVID-19 Exposure Response Date Recorded In the last month, have you been in contact with someone who was confirmed or suspected to have Coronavirus / COVID-19? No / Unsure 07/08/2019 11:06 AM CDT documented as of this encounter Progress Notes * Sammie Javier LCSW - 07/07/2019 1:30 PM CDT Social Work Note: Social Work arranged for a cab for patient for his Radiation Consult appointment at [facility] tomorrow (07/07). Patient will be picked-up at 9:30 AM by [facility] and through use of the Patient Care Fund. When his appointment is finished, patient will need assistance to call [facility] hospital Cab at [phone]. The cab should be under his last name. Social Work called to confirm arr angements with patient at [phone]. This is his [id number]'s phone (Shandra). Shandra stated that she would convey this information to patient. She inquired about prescriptions and SW offered to call his RN Coordinator regarding these questions. She stated that she would hold while Social Workattempted to reach the RN, but there was no answer. Sent a message regarding questions related to prescriptions. [employer] Work advised Shandra that SW was unable to reach the RN Coordinator, but would send a message to Rn regarding prescriptions. documented in this encounter Plan of Treatment Not on file documented as of this encounter Visit Diagnoses Not on filedocumented in this encounter Care Teams Student Services Counselor Relationship Specialty Start Date End Date Unknown, Notinfile PCP - General 06/06/19 09/25/19 Jose Huerta DO [address] [place] [address] PCP - General 09/26/19 06/18/20 No, Physician PCP - General 06/19/20 Lauren Roberson MD Radiation Oncologist Radiation Oncology 07/14/19 Catalino Rebolledo MD [address] [place] [address] Medical Oncologist/Chain Maker Medical Oncology 08/01/19 Hipolito Valverde MD [address] [place] [address] Surgeon Otolaryngology 08/01/19 Juvenal Lin MD PhD [address] [place] [address] Consulting Physician Radiation Oncology 06/07/20 documented as of this encounter
--- OUTSIDE RECORDS SUMMARY | 2024-06-18 10:52 | XMS_ITS ---
Author Organization [facility] Address [address] [place] [address] Care Team Providers Care Kindergartner Name Role Phone Lauren Roberson MD Unavailable [phone] Catalino Rebolledo MD Unavailable [phone] Hipolito Valverde MD Unavailable [phone] Juvenal Lin MD PhD Unavailable [phone] No, Physician Primary Care Provider [phone] Active Problems Patient Care Coordination No te [...] (02/16/2020): Added automatically from request for surgery [id number] Lymphedema of the head and neck 01/23/2020 History of radiation to head and neck region Pain of left lower extremity 12/12/2019 Decreased range of motion of neck 10/10/2019 Pulmonary nodule, left 09/26/2019 Larynx cancer ([facility]) 06/28/2019 Cancer Staging:Pathologic stage from 06/13/2019:Stage SANCHEZ(pT4a, [...] Bilateral sternocleidomastoid local muscleflaps. Inferiorly-based Severe malnutrition ([facility]) 06/07/2019 Vocal cords swelling 06/06/2019 Overview (06/06/2019): Added automatically from request for surgery [id number] Current Treatment and Therapy Plans No current plan information found. Past Treatment and Therapy Plans Oncology Chemotherapy Treatment Plan Name Start Date Discontinue Date Treatment Medications Discontinue Reason Plan Provider Cycles CISplatin with Concurrent Radiation 21 Day Cycles - Head and Neck 07/27/2019 04/24/2023 CISplatin (PLATINOL) IVPB in 250 mL Automatic discontinuation of dormant plans Catailno Rebolledo MD 2 of 2 cycles started Oncology Supportive Care Plan Name Start Date Discontinue Date Treatment Medications Discontinue Reason Plan Provider IV MAINTENANCE THERAPY PLAN 08/17/2019 07/07/2023 No medications scheduled. Automatic discontinuation of dormant plans Fortunato Scherer MD Radiation Treatments * Course [id number] 07/28/2019 - 09/12/2019 Treatment Period Energy Fraction Dose Fractions Total Dose Plans Planned Larynx 07/28/2019 - 09/12/2019 200 33 / 6,600 Reference Points Delivered [id number] 07/28/2019 - 09/12/2019 6,600 Lifetime Dose Tracking * Chemical Lifetime Dose Automatic Entry Manual Entr y Fluoro Time 0.5 minutes 0.5 minutes 0 minutes Air kerma at the reference point (Ka,r) 149.4 mGy 1 49.4 mGy 0 mGy DLP 1,082 mGycm 1,082 mGycm 0 mGycm Resolved Problems Problem Noted Date Diagnosed Date Resolved Date Laryngeal mass 06/06/2019 10/10/2019 Overview (06/07/2019): Added automatically from request for surgery [id number]
--- OUTSIDE RECORDS SUMMARY | 2024-06-18 10:53 | XMS_ITS | Encounter Summary ---
Author Organization [facility] Address [address] [place] [address] Care Team Providers Care Energy Efficient Site Manager Name Role Phone Lauren Roberson MD Unavailable [phone] Catalino Rebolledo MD Unavailable [phone] Hipolito Valverde MD Unavailable [phone] Jose Huerta DO Primary Care Provider [phone] Juvenal Lin MD PhD Unavailable [phone] No, Physician Primary Care Provider [phone] Encounter Details Date Type Department Care Team (Late st Contact Info) Description 01/23/2020 Telephone [facility] Radiation Oncology [facility] [place] [address] Lauren Roberson MD [address] [place] [address] Social History Tobacco Use Types Packs/Day Years [...] on file Legal Sex Male 5:45 AM MANAGER PE Gender Identity Not on file Sexual Orientation Not on file documented as of this encounter Plan of Treatment Not on file documented as of this encounter Visit Diagnoses Not on filedocumented in this encounter Care Teams Energy Efficient Site Manager Relationship Specialty Start Date End Date Jose Huerta DO [address] [place] [address] PCP - General 09/26/19 06/18/20 No, Physician PCP - General 06/19/20 Lauren Roberson MD Radiation Oncologist Radiation Oncology 07/14/19 Catalino Rebolledo MD [address] [facility] [address] [place] [address] Medical Oncologist/Quality Assurance Test Program Manager Medical Oncology 08/01/19 Hipolito Valverde MD [address] [place] [address] Surgeon Otolaryngology 08/01/19 Juvenal Lin MD PhD [address] [place] [address] Consulting Physician Radiation Oncology 06/07/20 documented as of this encounter
--- OUTSIDE RECORDS SUMMARY | 2024-06-18 13:16 | XMS_ITS | Referral Summary ---
Author Organization [facility] Address [address] [place] [address] Care Team Providers Care Manager Shipping Name Role Phone Lauren Roberson MD Unavailable [phone] Catalino Rebolledo MD Unavailable [phone] Hipolito Valverde MD Unavailable [phone] Juvenal Lin MD PhD Unavailable [phone]- [phone] No, Physician Primary Care Provider [phone] Allergies No known active allergies Medications levothyroxine (SYNTHROID) 50 mcg tablet Take 1 tablet (50 mcg total) by mouth music intern before breakfast 30 tablet 3 0 Active [...] (02/16/2020): Added automatically from request for surgery [id number] Lymphedema of the head and neck 01/23/2020 History of radiation to head and neck region Pain of left lower extremity 12/12/2019 Decreased range of motion of neck 10/10/2019 Pulmonary nodule, left 09/26/2019 Larynx cancer (CMS/[facility]) 06/28/2019 Cancer Staging:Pathologic stage from [...] (06/06/2019): Added automatically from request for surgery [id number] Resolved Problems Problem Noted Date Diagnosed Date Resolved Date Laryngeal mass 06/06/2019 10/10/2019 Overview (06/07/2019): Added automatically from request for surgery [id number] Immunizations Immunization Administration Dates Next Due Influenza, [...] on file Legal Sex Male 5:45 AM PERFORMANCE IMPROVEMENT CONSULTANT Gender Identity Not on file Sexual Orientation Not on file Last Filed Vital Signs Vital Sign Reading Time Taken Comments Blood Pressure 126/90 06/19/2020 12:52 PM PERFORMANCE IMPROVEMENT CONSULTANT Pulse 80 06/19/2020 12:52 PM PERFORMANCE IMPROVEMENT CONSULTANT Temperature 36.3 C (97.3 F) 06/19/2020 12:52 PM PERFORMANCE IMPROVEMENT CONSULTANT Respiratory Rate 22 06/19/2020 12:52 PM PERFORMANCE IMPROVEMENT CONSULTANT Oxygen Saturation 99% 06/19/2020 12:52 PM PERFORMANCE IMPROVEMENT CONSULTANT Inhaled Oxygen Concentration - - Weight 76.8 kg (169 lb 6.4 oz) 06/19/2020 12:52 PM PERFORMANCE IMPROVEMENT CONSULTANT Height 180 cm (5' 10.87 ) 03/02/2020 12:34 PM CS T Body Mass Index 23.72 03/02/2020 12:34 PM PERFORMANCE IMPROVEMENT CONSULTANT Plan of Treatment Not on file Medical Devices Implanted Type Area Safety Engineer Device Identifier Shelf Expiration Date Model / Serial / Lot [employer] Allian [id number] [place] Microvascular Anastomoses 4mm Wrapper Opener Anastomosis Sterile - [id number] Implanted:Qty: 1 on 06/13/2019 by Reji Alas MD at [facility] Other - see comments Neck [employer] Allian 03/21/2024 [id number] / / Description:Wrapper Opener [employer] [id number] Probe Doppler 17.4cm Standard Cuff Implantable 20mhz Latex Free Sterile Microvascular Anastomoses Narciso - [id number] Implanted:Qty: 1 on 06/13/2019 by Reji Alas MD at [facility] Neck [employer] [id number] 04/26/2022 [id number] / / [id number] Insurance [facility] [place] [address] Advance Directives For more information, please contact: [phone] * Full Code (Latest Code Status on File) Date Activated Date Inactivated Comments 03/02/2020 6:40 PM 03/05/2020 4:51 PM * Full Code Date Activated Date Inactivated Comments 07/26/2019 8:49 AM 07/26/2019 2:38 PM * Full Code Date Activated Date Inactivated Comments 06/06/2019 11:31 AM 06/23/2019 8:04 PM Care Teams Manager Shipping Relationship Specialty Start Date End Date No, Physician PCP - General 06/19/20 Lauren Roberson MD Radiation Oncologist Radiation Oncology 07/14/19 Catalino Rebolledo MD [address] [facility] [address] [place] [address] Medical Oncologist/Blending Kettle Tender Medical Oncology 08/01/19 Hipolito Valverde MD [address] [place] [address] Surgeon Otolaryngology 08/01/19 Juvenal Lin MD PhD [address] [place] [address] Consulting Physician Radiation Oncology 06/07/20
--- OUTSIDE RECORDS SUMMARY | 2024-06-18 13:16 | XMS_ITS | Clinical Summary ---
Author Organization [facility] Address [address] [place] [address] Care Team Providers Care Benzol Still Operator Name Role Phone Lauren Roberson MD Unavailable [phone] Catalino Rebolledo MD Unavailable [phone] Hipolito Valverde MD Unavailable [phone] Juvenal Lin MD PhD Unavailable [phone]- [phone] No, Physician Primary Care Provider [phone] Allergies No known active allergies Medications levothyroxine (SYNTHROID) 50 mcg tablet Take 1 tablet (50 mcg total) by mouth cloud engagement partner before breakfast 30 tablet 3 0 Active [...] (02/16/2020): Added automatically from request for surgery [id number] Lymphedema of the head and neck 01/23/2020 History of radiation to head and neck region Pain of left lower extremity 12/12/2019 Decreased range of motion of neck 10/10/2019 Pulmonary nodule, left 09/26/2019 Larynx cancer (CMS/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 Gender Identity Not on file Sexual Orientation Not on file Obstetrics History Last Filed Vital Signs Vital Sign Reading Time Taken Comments Blood Pressure 126/90 06/19/2020 12:52 PM DEAN OF GRADUATE STUDIES Pulse 80 06/19/2020 12:52 PM DEAN OF GRADUATE STUDIES Temperature 36.3 C (97.3 F) 06/19/2020 12:52 PM DEAN OF GRADUATE STUDIES Respiratory Rate 22 06/19/2020 12:52 PM DEAN OF GRADUATE STUDIES Oxygen Saturation 99% 06/19/2020 12:52 PM DEAN OF GRADUATE STUDIES Inhaled Oxygen Concentration - - Weight 76.8 kg (169 lb 6.4 oz) 06/19/2020 12:52 PM DEAN OF GRADUATE STUDIES Height 180 cm (5' 10.87 ) 03/02/2020 12:34 PM CS T Body Mass Index 23.72 03/02/2020 12:34 PM DEAN OF GRADUATE STUDIES Plan of Treatment Health Maintenance Due Date [...] history exists Medical Devices Implanted Type Area Seafood Preparer Device Identifier Shelf Expiration Date Model / Serial / Lot [employer] Allian [id number] Scott Microvascular Anastomoses 4mm Database Security Expert Anastomosis Sterile - [id number] Implanted:Qty: 1 on 06/13/2019 by Reji Alas MD at [facility] Other - see comments Neck [employer] Allian 03/21/2024 [id number] / / Description:Database Security Expert [employer] [id number] Probe Doppler 17.4cm Standard Cuff Implantable 20mhz Latex Free Sterile Microvascular Anastomoses Narciso - [id number] Implanted:Qty: 1 on 06/13/2019 by Reji Alas MD at [facility] Neck [employer] [id number] 04/26/2022 [id number] / / [id number] Insurance [facility] Advance Directives For more information, please contact: [phone] * Full Code (Latest Code Status on File) Date Activated Date Inactivated Comments 03/02/2020 6:40 PM 03/05/2020 4:51 PM * Full Code Date Activated Date Inactivated Comments 07/26/2019 8:49 AM 07/26/2019 2:38 PM * Full Code Date Activated Date Inactivated Comments 06/06/2019 11:31 AM 06/23/2019 8:04 PM Care Teams Benzol Still Operator Relationship Specialty Start Date End Date No, Physician PCP - General 06/19/20 Lauren Roberson MD Radiation Oncologist Radiation Oncology 07/14/19 Catalino Rebolledo MD [address] [facility] [address] [place] [address] Medical Oncologist/Sap Project Manager Medical Oncology 08/01/19 Hipolito Valverde MD [address] [place] [address] Surgeon Otolaryngology 08/01/19 Juvenal Lin MD PhD [address] [place] [address] Consulting Physician Radiation Oncology 06/07/20
--- OUTSIDE RECORDS SUMMARY | 2024-06-18 13:16 | XMS_ITS | Encounter Summary ---
Author Organization [facility] Address [address] [place] [address] Phone Care Team Providers Care Nursing Educator Name Role Phone Unknown, Notinfile Primary Care Provider Unavail able Lauren Roberson MD Unavailable [phone] Catalino Rebolledo MD Unavailable [phone] Hipolito Valverde MD Unavailable [phone] Jose Huerta DO Primary Care Provider [phone] Juvenal Lin MD PhD Unavailable [phone] No, Physician Primary Care Provider Encounter Details Date Type Department Care Team (Late st Contact Info) Description 07/27/2019 Social Work [facility] Oncology [address] [facility] 7th [place] [address] [place] [address] Sammie Javier, [facility] Social History Tobacco Use Types Packs/Day Years Used Date Smoking Tobacco: Former Cigarettes 2019 Smokeless Tobacco: Never Alcohol Use Standard Drinks/Week Comments Not Currently 0 (1 standard drink = 0.6 oz pure alcohol) quit in 2020 when diagnosed with laryngeal cancer Sex and Gender Information Value Date Recorded Sex Assigned at Not on file 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 Cab arranged for patient via [facility] [employer] and placed on-hold. Updated treatment room RN. When treatmentis completed, please call [phone] and request cab for this patient which is on-hold under his name. documented in this encounter Plan of Treatment Not on file documented as of this encounter Visit Diagnoses Not on filedocumented in this encounter Care Teams Nursing Educator Relationship Specialty Start Date End Date Unknown, Notinfile PCP - General 06/06/19 09/25/19 Jose Huerta DO [address] [place] [address] PCP - General 09/26/19 06/18/20 No, Physician PCP - General 06/19/20 Lauren Roberson MD Radiation Oncologist Radiation Oncology 07/14/19 Catalino Rebolledo MD [address] [place] [address] Medical Oncologist/Guard Supervisor Medical Oncology 08/01/19 Hipolito Valverde MD [address] [place] [address] Surgeon Otolaryngology 08/01/19 Juvenal Lin MD PhD [address] [place] [address] Consulting Physician Radiation Oncology 06/07/20 documented as of this encounter
--- OUTSIDE RECORDS SUMMARY | 2024-06-18 13:16 | XMS_ITS | Encounter Summary ---
Author Organization [facility] Address [address] [place] [address] Phone Care Team Providers Care Media Liaison Officer Name Role Phone Unknown, Notinfile Primary Care Provider Unavail able Lauren Roberson MD Unavailable [phone] Catalino Rebolledo MD Unavailable [phone] Hipolito Valverde MD Unavailable [phone] Jose Huerta DO Primary Care Provider [phone] Juvenal Lin MD PhD Unavailable [phone] No, Physician Primary Care Provider [phone] Encounter Details Date Type Department Care Team (Late st Contact Info) Description 07/07/2019 Social Work [facility] Oncology [address] [facility] 7th [place] [address] [place] [address] Sammie Javier LCSW Social History Tobacco Use Types Packs/Day Years Used Date Smoking Tobacco: Former Cigarettes Smokeless Tobacco: Never Sex and Gender Information Value Date Recorded Sex Assigned at Not on file 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 Patient will be picked-up at 9:30 AM by [facility] and through use of the Patient Care Fund. When his appointment is finished, patient will need assistance to call [facility] Cab at [phone]. The cab should be under his last name. Social Work called to confirm arr angements with patient at [phone]. This is his [id number]'s phone (Shandra). Shandra stated that she would convey this information to patient. She inquired about prescriptions and SW offered to call his RN Coordinator regarding these questions. She stated that she would hold while Social Workattempted to reach the RN, but there was no answer. Sent a message regarding questions related to prescriptions. [employer] advised Shandra that SW was unable to reach the RN Coordinator, but would send a message to Rn regarding prescriptions. documented in this encounter Plan of Treatment Not on file documented as of this encounter Visit Diagnoses Not on filedocumented in this encounter Care Teams Media Liaison Officer Relationship Specialty Start Date End Date Unknown, Notinfile PCP - General 06/06/19 09/25/19 Jose Huerta DO [address] [place] [address] PCP - General 09/26/19 06/18/20 No, Physician PCP - General 06/19/20 Lauren Roberson MD Radiation Oncologist Radiation Oncology 07/14/19 Catalino Rebolledo MD [address] [place] [address] Medical Oncologist/Personal Fitness Trainer Medical Oncology 08/01/19 Hipolito Valverde MD [address] [place] [address] Surgeon Otolaryngology 08/01/19 Juvenal Lin MD PhD [address] [place] [address] Consulting Physician Radiation Oncology 06/07/20 documented as of this encounter
--- OUTSIDE RECORDS SUMMARY | 2024-06-18 13:16 | XMS_ITS ---
Author Organization [facility] Address [address] [place] [address] Care Team Providers Care Life Insurance Underwriter Name Role Phone Lauren Roberson MD Unavailable [phone] Catalino Rebolledo MD Unavailable [phone] Hipolito Valverde MD Unavailable [phone] Juvenal Lin MD PhD Unavailable [phone] No, Physician Primary Care Provider [phone] Active Problems Patient Care Coordination No te [...] (02/16/2020): Added automatically from request for surgery [id number] Lymphedema of the head and neck 01/23/2020 History of radiation to head and neck region Pain of left lower extremity 12/12/2019 Decreased range of motion of neck 10/10/2019 Pulmonary nodule, left 09/26/2019 Larynx cancer ([facility]) 06/28/2019 Cancer Staging:Pathologic stage from 06/13/2019:Stage SANCHEZ(pT4a, [...] Bilateral sternocleidomastoid local muscleflaps. Inferiorly-based Severe malnutrition ([facility]) 06/07/2019 Vocal cords swelling 06/06/2019 Overview (06/06/2019): Added automatically from request for surgery [id number] Current Treatment and Therapy Plans No current plan information found. Past Treatment and Therapy Plans Oncology Chemotherapy Treatment Plan Name Start Date Discontinue Date Treatment Medications Discontinue Reason Plan Provider Cycles CISplatin with Concurrent Radiation 21 Day Cycles - Head and Neck 07/27/2019 04/24/2023 CISplatin (PLATINOL) IVPB in 250 mL Automatic discontinuation of dormant plans Catalino Rebolledo MD 2 of 2 cycles started [...] (06/07/2019): Added automatically from request for surgery [id number]
--- OUTSIDE RECORDS SUMMARY | 2024-06-18 13:16 | XMS_ITS | Encounter Summary ---
Author Organization [facility] Address [address] [place] [address] Care Team Providers Care Retail Business Development Manager Name Role Phone Lauren Roberson MD Unavailable [phone] Catalino Rebolledo MD Unavailable [phone] Hipolito Valverde MD Unavailable [phone] Jose Huerta DO Primary Care Provider [phone] Juvenal Lin MD PhD Unavailable [phone] No, Physician Primary Care Provider Encounter Details Date Type Department Care Team (Late st Contact Info) Description 01/23/2020 Telephone [facility] Radiation Oncology [facility] [place] [address] Lauren Roberson MD [address] [place] [address] Social History Tobacco Use Types [...] on file 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 Gender Identity Not on file Sexual Orientation Not on file documented as of this encounter Plan of Treatment Not on file documented as of this encounter Visit Diagnoses Not on filedocumented in this encounter Care Teams Retail Business Development Manager Relationship Specialty Start Date End Date Jose Huerta DO [address] [place] [address] PCP - General 09/26/19 06/18/20 No, Physician PCP - General 06/19/20 Lauren Roberson MD Radiation Oncologist Radiation Oncology 07/14/19 Catalino Rebolledo MD [address] [facility] [address] [place] [address] Medical Oncologist/Area Mechanic Medical Oncology 08/01/19 Hipolito Valverde MD [address] [place] [address] Surgeon Otolaryngology 08/01/19 Juvenal Lin MD PhD [address] [place] [address] Consulting Physician Radiation Oncology 06/07/20 documented as of this encounter
[2024-06-18 13:49] LABS: Basophils Percent Auto 0.7 % (0.2-1.2); Eosinophils Absolute Auto 0.1 K/mm3 (0-0.3); Eosinophils Percent Auto 1.7 % (0-4.4); Hematocrit 43.6 % (42.0-52.0); Hemoglobin 14.8 g/dL (14.0-18.0); Immature Granulocyte Absolute 0.01 K/mm3 (0.00-0.031); Immature Granulocyte Percent A 0.2 % (0-0.5); Lymphocytes Absolute Auto 1.12 K/mm3 (0.9-3.2); Lymphocytes Percent Auto 26.6 % (18.3-44.2); Mean Corpuscular HGB Conc 33.9 g/dl (32-36); Mean Corpuscular Hemoglobin 33.3 pg (26-34); Monocytes Absolute Auto 0.5 K/mm3 (0.1-0.6); Monocytes Percent Auto 12.4 % (2.6-8.5); Neutrophils Absolute Auto 2.5 K/mm3 (1.3-6.7); Neutrophils Percent Auto 58.4 % (45.5-73.1); Platelet Count Result 164 k/mm3 (150-375); Red Blood Count 4.45 M/mm3 (4.6-6.20); White Blood Count 4.2 K/mm3 (4.5-10.0)
[2024-06-18 13:58] LABS: Alanine Aminotransferase 19 U/L (6-50); Alkaline Phosphatase 101 U/L (38-126); Anion Gap 10 mmol/L (4-12); Aspartate Amino Transferase 31 U/L (17-59); Bilirubin,Total 0.8 mg/dL (0.2-1.3); Blood Urea Nitrogen 7 mg/dL (9-20); Calcium 8.9 mg/dL (8.4-10.2); Carbon Dioxide 23 mmol/L (22-30); Chloride 100 mmol/L (98-107); Estimated CRCL calculation 89 ml/min; Estimated Glomerular Filt Rate > 60; Glucose 91 mg/dL (65-110); Sodium 133 mmol/L (137-145)
[2024-06-18] MEDS: ALBUTEROL SULFATE NEB 2.5 MG/3 ML INH 5 MG INHALATION (14:00)
[2024-06-18 14:02] LABS: Partial Thromboplastin Time 26.9 Seconds (22.3-36.8)
--- NOTE | 2024-06-18 14:05 | ED_ITS ---
HPI - General Adult General Chief complaint: Shortness of Breath/Dyspnea Stated complaint: coughing up blood Time Seen by Provider: 06/18/24 13:05 History of Present Illness HPI narrative: 64-year-old male presenting to the emergency department for evaluation for hemoptysis that started last night. Patient does have history of anginal cancer, colon cancer and lung cancer. Patient does have a tracheostomy in place for the last 4 years, this was done at [facility]. Patient states last night he started having increased cough and congestion and did have bleeding from his tracheostomy for a few hours. Patient did go to [facility], was evaluated was discharged to home. Patient was not happy with his care at [facility] so he presented to our emergency department for further evaluation. Patient denies any associated current chest pain or shortness of breath. Patient has not had hemoptysis since last night. Related Data Allergies Allergy/AdvReac Type Severity Reaction Status Date / Time No Known Allergies Allergy Mild Verified 06/18/24 13:06 Review of Systems 2 Review of Systems: All systems reviewed & are unremarkable except as noted in HPI and below Exam 2 Narrative: APPEARANCE: Well appearing, no pain, no distress, well-nourished. HEAD: normocephalic, atraumatic. EYES: PERRLA/EOMI, conjunctivae clear. NOSE: Normal no drainage EARS:TMS clear with good light reflex. THROAT: Pharynx clear, no exudate. NECK: Supple. No adenopathy, no masses. RESPIRATORY: Airway patent, respirations nonlabored. Clear to auscultation bilaterally, no rales, rhonchi, wheezing. CARDIOVASCULAR: Regular rate and rhythm without murmurs rubs or gallops. ABDOMINAL: Soft, nontender, nondistended, normal bowel sounds MUSCULOSKELETAL: Moves all extremities. Strength/ROM intact, No edema, No calf tenderness. NEURO: Alert. Cranial nerves II through XII intact. Good gait. Good coordination SKIN: Warm, dry. Normal Color Course Vital Signs Vital signs: Vital Signs Temperature 97.6 F 06/18/24 10:52 Pulse Rate 89 06/18/24 10:52 Respiratory Rate 16 06/18/24 10:52 Blood Pressure 133/95 H 06/18/24 10:52 Pulse Oximetry 96 06/18/24 10:52 Oxygen Delivery Room Air 06/18/24 10:52 Temperature 97.6 F 06/18/24 10:52 Pulse Rate 78 06/18/24 15:52 Respiratory Rate 18 06/18/24 15:52 Blood Pressure 135/89 06/18/24 15:52 Pulse Oximetry 100 06/18/24 15:52 Oxygen Delivery Room Air 06/18/24 13:05 Medical Decision Making MDM Narrative Medical decision making narrative: 64-year-old male present to the emergency department for evaluation for episode of hemoptysis last night. Patient has had no further hemoptysis. Patient is currently afebrile with no leukocytosis and hemoglobin of 14.8. Patient has an INR of 1.0. No significant abnormalities on the patient's CMP. Patient was negative for influenza RSV and for COVID, CTA showed no evidence of pulmonary embolism but did show a cystic mass in left supraclavicular region that was previously identified, but is possibly increased in size. Patient was updated on results of the workup. Patient was encouraged close follow-up with his physicians regarding the cystic mass. Differential Diagnosis Differential Diagnosis: Pulmonary embolism, pneumonia, hemoptysis, bronchitis, bleeding trach Vital Signs Vital Signs: Vital Signs Temperature 97.6 F 06/18/24 10:52 Pulse Rate 89 06/18/24 10:52 Respiratory Rate 16 06/18/24 10:52 Blood Pressure 133/95 H 06/18/24 10:52 Pulse Oximetry 96 06/18/24 10:52 Oxygen Delivery Room Air 06/18/24 10:52 Temperature 97.6 F 06/18/24 10:52 Pulse Rate 78 06/18/24 15:52 Respiratory Rate 18 06/18/24 15:52 Blood Pressure 135/89 06/18/24 15:52 Pulse Oximetry 100 06/18/24 15:52 Oxygen Delivery Room Air 06/18/24 13:05 Lab Data Lab results reviewed: Yes I reviewed the patient's lab results. 06/18/24 13:40 06/18/24 13:40 Labs: Lab Results 06/18/24 Range/Units 13:40 WBC 4.2 L (4.5-10.0) K/mm3 RBC 4.45 L (4.6-6.20) M/mm3 Hgb 14.8 (14.0-18.0) g/dL Hct 43.6 (42.0-52.0) % MCV 98.0 (80-100) fl MCH 33.3 (26-34) pg MCHC 33.9 (32-36) g/dl RDW 14.0 (11.5-14.5) % Plt Count 164 (150-375) k/mm3 MPV 10.0 (7.4-10.4) fl Immature Gran % (Auto) 0.2 (0-0.5) % Neut % (Auto) 58.4 (45.5-73.1) % Lymph % (Auto) 26.6 (18.3-44.2) % Blanco % (Auto) 12.4 H (2.6-8.5) % Eos % (Auto) 1.7 (0-4.4) % Baso % (Auto) 0.7 (0.2-1.2) % Lymph # (Auto) 1.12 (0.9-3.2) K/mm3 Blanco # (Auto) 0.5 (0.1-0.6) K/mm3 Eos # (Auto) 0.1 (0-0.3) K/mm3 Baso # (Auto) 0.0 (0.0-0.1) K/mm3 Abs Immat Gran (auto) 0.01 (0.00-0.031) K/mm3 Absolute Neuts (auto) 2.5 (1.3-6.7) K/mm3 Absolute Nucleated RBC 0.000 (0.0-0.012) K/mm3 Nucleated RBC % 0.0 (0.0-0.2) % PT 13.0 (11.1-14.7) Seconds INR 1.0 APTT 26.9 (22.3-36.8) Seconds Sodium 133 L (137-145) mmol/L Potassium 4.0 (3.4-5.0) mmol/L Chloride 100 (98-107) mmol/L Carbon Dioxide 23 (22-30) mmol/L Anion Gap 10 (4-12) mmol/L BUN 7 L (9-20) mg/dL Creatinine 0.72 (0.7-1.3) mg/dL Estim Creat Clear Calc 89 ml/min Estimated GFR > 60 (59 - ) Glucose 91 (65-110) mg/dL Calcium 8.9 (8.4-10.2) mg/dL Total Bilirubin 0.8 (0.2-1.3) mg/dL AST 31 (17-59) U/L ALT 19 (6-50) U/L Alkaline Phosphatase 101 (38-126) U/L NT-Pro-B Natriuret Pep 184 H (19.9-100) pg/mL Total Protein 7.0 (6.3-8.2) g/dL Albumin 4.0 (3.5-5.1) g/dL Influenza A (RT-PCR) Negative (Negative) Influenza B (RT-PCR) Negative (Negative) RSV (RT-PCR) Negative (Negative) SARS-CoV-2 RNA (RT-PCR) Negative (Negative) Discharge Plan Discharge Clinical Impression: Cough with hemoptysis Patient Disposition: Home, Self-Care Condition: Stable Instructions: Antibiotic Form Additional Instructions: Have close follow-up with your physician for a cystic mass in left supraclavicular region. This was seen on previous CT scans but has increased in size. Patient Language: Kuwaiti Follow-up/Referrals: Sera,Hosea Vance MD [Primary Care Provider] -
[2024-06-18 14:07] LABS: NT Pro B Type Natriuretic Pept 184 pg/mL (19.9-100)
[2024-06-18 14:26] LABS: Influenza A QL RT-PCR Negative (Negative); Influenza B QL RT-PCR Negative (Negative); RSV RNA, RT-PCR Negative (Negative); SARS-CoV-2 RNA PCR Negative (Negative)
== END 2024-06-18 15:50 | disposition home or self-care (01) ==
PROVIDERS: Emergency Provider Emergency Medicine; PCP Family Medicine
DX: R04.2 Hemoptysis (principal); Z20.822 Contact with and (suspected) exposure to COVID-19; Z93.0 Tracheostomy status; Z85.21 Personal history of malignant neoplasm of larynx; Z85.038 Personal history of other malignant neoplasm of large intestine; Z85.118 Personal history of other malignant neoplasm of bronchus and lung
CPT/HCPCS: 36415; 71275; 80053; 83880; 85025; 85610; 85730; 87637; 94640; 99284; Q9967